=== PATIENT | female | born 1995 | race Caucasian/White ===

== ENCOUNTER → 2022-03-18 | Outpatient (CLI) | LOC: LABNPT 12:04 | PROVIDERS: ATTEND Obstetrics & Gynecology | DX: R03.0 Elevated blood-pressure reading, without diagnosis of hypertension (principal) | CPT/HCPCS: 82570; 84156 ==

== ENCOUNTER → 2022-05-10 | Outpatient (CLI) | payer BC ==
--- NOTE | 2022-05-10 18:39 | Diagnostic Imaging Report ---
INDICATION: OB ultrasound. TECHNIQUE: Multiple real-time grayscale images were obtained over the gravid uterus. COMPARISON: None. FINDINGS: There is single live intrauterine fetus. Placenta is posterior and not low. Current breech presentation. Fetus is active. The amniotic fluid index is normal. heart rate 150 BPM. Cervical length 3.7 cm. anatomical survey is normal at this time with structures visualized including kidneys, bladder, stomach, ventricles, brain, four-chamber heart, three-vessel cord, spine, and cord insertion. No maternal adnexal masses are seen. Biometrical measurements are as follows: Biparietal 4.72 cm, age 20 weeks 2 days. Head circumference 18.15 cm, age 20 weeks 4 days. Abdominal circumference 14.99 cm, age 20 weeks 2 days. Femur length 3.26 cm, age 20 weeks 2 days. Sonographic estimate age: 20 weeks 3 days. Sonographic estimated date of delivery: 09/24/22. Estimated Weight: 341 gm (+/- 50 gm). LMP percentile: 43%. heart rate: 150 beats per minute. number: 1 of 1. IMPRESSION: 1. Single live intrauterine fetus. Current biometric measurements average for 20 weeks 3 days gestation. Good correlation with LMP. LMP percentile is 43. Dictated by: Dictated on workstation # [id number]
== END ==
LOC: RAD 15:00
PROVIDERS: ATTEND Obstetrics & Gynecology
DX: Z36.9 Encounter for antenatal screening, unspecified (principal); Z3A.20 20 weeks gestation of pregnancy
CPT/HCPCS: 76805

== ENCOUNTER → 2022-09-02 | Outpatient (CLI) | payer BC | LOC: LABNPT 16:02 | PROVIDERS: ATTEND Nurse Practitioner Women's Health | DX: O13.9 Gestational [pregnancy-induced] hypertension without significant proteinuria, unspecified trimester (principal); Z3A.00 Weeks of gestation of pregnancy not specified | CPT/HCPCS: 82570; 84156 ==

== ENCOUNTER 2022-09-16 18:43 | Inpatient (IN) | payer BC ==
[~2022-09-16] VITALS: Ht 165.1 cm; Wt 82.0 kg
[2022-09-16] VITALS (11 sets, daily range): BP systolic 141–176; BP diastolic 84–100
[2022-09-16] MEDS ORDERED: D5 LR IV SOLUTION 1,000 ML IV ONE (19:54)
[2022-09-16] MEDS ORDERED: NS IV 1000 ML 1,000 ML IV SCH (20:00)
[2022-09-16 20:02] LABS: BASOPHILS % (AUTO) 0 % (0-10); EOSINOPHILS % (AUTO) 0 % (0-10); HEMATOCRIT 40 % (35-52); HEMOGLOBIN 13.5 g/dL (11.5-16.0); LYMPHOCYTES # (AUTO) 1.9 10^3/uL (1.0-4.0); LYMPHOCYTES % (AUTO) 18 % (12-44); MEAN CORPUSCULAR HEMOGLOBIN 32 pg (25-34); MEAN CORPUSCULAR HGB CONC 34 g/dL (32-36); MEAN CORPUSCULAR VOLUME 94 fL (80-99); MEAN PLATELET VOLUME 9.8 fL (9.0-12.2); MONOCYTES # (AUTO) 0.7 10^3/uL (0.0-1.0); MONOCYTES % (AUTO) 6 % (0-12); NEUTROPHILS # (AUTO) 7.9 10^3/uL (1.8-7.8); NEUTROPHILS % (AUTO) 75 % (42-75); PLATELET COUNT 199 10^3/uL (130-400); WHITE BLOOD COUNT 10.6 10^3/uL (4.3-11.0)
[2022-09-16 20:02] LABS: BILIRUBIN,URINE NEGATIVE (NEGATIVE); CLARITY,URINE CLEAR; COLOR,URINE YELLOW; GLUCOSE, URINE (UA) NEGATIVE (NEGATIVE); KETONES,URINE NEGATIVE (NEGATIVE); LEUKOCYTE ESTERASE ,URINE TRACE (NEGATIVE); NITRITE,URINE NEGATIVE (NEGATIVE); PH,URINE 5.5 (5-9); PROTEIN,URINE 2+ (NEGATIVE)
[2022-09-16] MEDS: D5 LR IV SOLUTION 1,000 ML IV SCH (20:02)
[2022-09-16] MEDS ORDERED: NS IV 1000 ML 1,000 ML ONE (20:11)
[2022-09-16 20:28] LABS: BACTERIA,URINE MODERATE /HPF; WBC,URINE 25-50 /HPF
[2022-09-16] MEDS ORDERED: LABETALOL 200 MG (NORMODYNE) TAB PO ONE (21:30)
[2022-09-16] MEDS: LABETALOL 200 MG (NORMODYNE) TAB PO SCH (21:35)
[2022-09-16] MEDS ORDERED: CATHETER FLUSH 10 ML SYR IV SCH (22:00)
[2022-09-17] VITALS (10 sets, daily range): BP systolic 117–165; BP diastolic 68–89
[2022-09-17] MEDS ORDERED: ACETAMINOPHEN 500 MG TAB (TYLENOL) ONE (01:34)
[2022-09-17] MEDS ORDERED: ACETAMINOPHEN 500 MG TAB (TYLENOL) PO ONE (01:45)
[2022-09-17] MEDS: D5 LR IV SOLUTION 1,000 ML IV SCH (04:15)
--- NOTE | 2022-09-17 05:28 | History & Physical-OB ---
OB - Chief Complaint & HPI Date/Time Date of Admission: Date of Admission: Sep 16, 2022 at 19:30 Date seen by a Provider: Sep 17, 2022 Time Seen by a Provider: 05:00 Chief Complaint/History OB-Reason for Admission/Chief: Induction of Labor Hx : 1 Hx Para: 0 Expected Date of Delivery: Sep 25, 2022 Gestational Age in Weeks: 38 Gestational Age in Days: 5 Indication for induction: medical complication Other reason for admission: Patient had elevated BP in office prompting PIH labs, which showed Protein cr ratio of 0.6. Due to PreE diagnosis and 38 weeks, patient advised to go to hospital for IOL. Admission Nurse Assessment Rev: Yes History of Labs A pos Antibody neg RI RPR NR HIV NR HBsAg NR GC neg GBS neg Allergies and Home Medications Allergies Coded Allergies: No Known Drug Allergies (Unverified , 09/16/22) Patient Home Medication List Home Medication List Reviewed: Yes OB - History Hx of Present Care: Yes Ultrasounds: Normal mid trimester US Obstetrical Complications: Gestational Hypertension Medical Complications: None Patient Past Medical History n/a Immunizations Influenza Vaccine Up-to-Date: No; Not Current OB - Admission Exam Physical Exam Vitals: Vital Signs 09/16/22 09/16/22 09/17/22 19:40 22:15 01:00 Temp 37.1 Pulse 63 Resp 18 B/P (MAP) 139/89 (106) Pulse Ox 99 O2 Delivery Room Air HEENT: NCAT Heart: Rhythm Normal Lungs: Clear Abdomen: Gravid Extremities: Normal Reflexes: Normal Cervical Dilatation: 3cm Effacement: 75% Station: -1 Membranes: Intact Heart Rate: 130's Accelerations: Accelerations Present Decelerations: No Decelerations Short Term Variability: Present Skilled Nursing Variability: Average (6-25) Contractions on Admission: 6-10 Minutes Apart Intensity: Mild Labs Laboratory Tests Test 09/16/22 19:00 09/16/22 19:55 Range/Units Urine Color YELLOW Urine Clarity CLEAR Urine pH 5.5 5-9 Urine Specific [place] >=1.030 1.016-1.022 Urine Protein 2+ H NEGATIVE Urine Glucose (UA) NEGATIVE NEGATIVE Urine Ketones NEGATIVE NEGATIVE Urine Nitrite NEGATIVE NEGATIVE Urine Bilirubin NEGATIVE NEGATIVE Urine Urobilinogen 0.2 < = 1.0 MG/DL Urine Leukocyte Esterase TRACE H NEGATIVE Urine RBC (Auto) NEGATIVE NEGATIVE Urine RBC NONE /HPF Urine WBC 25-50 H /HPF Urine Squamous Epithelial Cells 10-25 H /HPF Urine Crystals NONE /LPF Urine Bacteria MODERATE H /HPF Urine Casts NONE /LPF Urine Mucus LARGE H /LPF Urine Culture Indicated YES White Blood Count 10.6 4.3-11.0 10^3/uL Red Blood Count 4.26 3.80-5.11 10^6/uL Hemoglobin 13.5 11.5-16.0 g/dL Hematocrit 40 35-52 % Mean Corpuscular Volume 94 80-99 fL Mean Corpuscular Hemoglobin 32 25-34 pg Mean Corpuscular Hemoglobin Concent 34 32-36 g/dL Red Cell Distribution Width 12.4 10.0-14.5 % Platelet Count 199 130-400 10^3/uL Mean Platelet Volume 9.8 9.0-12.2 fL Immature Granulocyte % (Auto) 0 % Neutrophils (%) (Auto) 75 42-75 % Lymphocytes (%) (Auto) 18 12-44 % Monocytes (%) (Auto) 6 0-12 % Eosinophils (%) (Auto) 0 0-10 % Basophils (%) (Auto) 0 0-10 % Neutrophils # (Auto) 7.9 H 1.8-7.8 10^3/uL Lymphocytes # (Auto) 1.9 1.0-4.0 10^3/uL Monocytes # (Auto) 0.7 0.0-1.0 10^3/uL Eosinophils # (Auto) 0.0 0.0-0.3 10^3/uL Basophils # (Auto) 0.0 0.0-0.1 10^3/uL Immature Granulocyte # (Auto) 0.0 0.0-0.1 10^3/uL OB - Assessment/Plan/Diagnosis Assessment Assessment: induction of labor (PreEclampsia) Admission Dx 27 yo @ 38.6 weeks Preeclampsia GBS neg Admission Status: Inpatient Order (span 2 midnights) Reason for Inpatient Admission: IOL at 38 weeks Plan Plan: Induction Induction Method: per Misoprostol Protocol KALEY ELI DO Sep 17, 2022 05:28
[2022-09-17] MEDS ORDERED: fentaNYL 2 mcg/ml BUPIVA 0.125 100 ML ONE (08:00)
[2022-09-17] MEDS ORDERED: fentaNYL INJ 100 MCG/2 ML AMP ONE (08:34)
[2022-09-17] MEDS ORDERED: LIDOCAINE PF 2% 5 ML (XYLOCAINE) VIAL ONE (08:34)
[2022-09-17] MEDS: LABETALOL 200 MG (NORMODYNE) TAB PO SCH ×2 (08:45→21:19)
[2022-09-17] MEDS ORDERED: LACTATED RINGERS 1,000 ML IV SCH (09:00)
[2022-09-17] MEDS ORDERED: diphenhydrAMINE 50 MG/ML INJ (BENADRYL) IV PRN (09:00)
[2022-09-17] MEDS ORDERED: NALOXONE 0.4 MG/ML 1 ML (NARCAN) VIAL IV PRN ×2 (09:00)
[2022-09-17] MEDS ORDERED: ONDANSETRON 4 MG/2 ML (SDV) Z0FRAN IV PRN (09:00)
[2022-09-17] MEDS ORDERED: METOCLOPRAMIDE INJ 10 MG/2 ML (REGLAN) IV PRN (09:00)
[2022-09-17] MEDS ORDERED: fentaNYL 2 mcg/ml BUPIVA 0.125 100 ML EPI SCH (09:00)
[2022-09-17] MEDS ORDERED: OXYTOCIN PRE-MIX DRIP 500 ML IV ONE ×2 (10:20→12:25)
[2022-09-17] MEDS ORDERED: LIDOCAINE 1% INJ 10 ML VIAL ONE (10:22)
[2022-09-17] MEDS: OXYTOCIN PRE-MIX DRIP 500 ML IV SCH ×2 (12:23→20:28)
[2022-09-17] MEDS ORDERED: ACETAMINOPHEN 500 MG TAB (TYLENOL) PO PRN (12:45)
[2022-09-17] MEDS ORDERED: BENZOCAINE/MENTHOL (DERMOPLAST) 56 ML CAN TP PRN (12:45)
[2022-09-17] MEDS ORDERED: WITCH HAZEL(TUCKS) 40 EA JAR TOP PRN (12:45)
[2022-09-17] MEDS ORDERED: DIBUCAINE 1% OINTMENT 30 GM TUBE TOP PRN (12:45)
[2022-09-17] MEDS ORDERED: MEASLES,MUMPS,RUBELLA 1 EA INJ SQ ONE (12:45)
[2022-09-17] MEDS ORDERED: HYDROcodone/APAP 5 MG/325 MG (LORTAB) TAB PO PRN (12:45)
[2022-09-17] MEDS ORDERED: TETANUS,DIPTH,PERTUSS P/F (BOOSTRIX) 0.5 ML VIAL IM ONE (12:45)
[2022-09-17] MEDS: IBUPROFEN 600 MG (MOTRIN) TAB PO SCH ×2 (13:59→21:17)
[2022-09-17] MEDS ORDERED: CATHETER FLUSH 10 ML SYR IV SCH (14:00)
--- NOTE | 2022-09-17 15:45 | OB Labor & Delivery Record ---
L&D History Date of Service Date of Service: Sep 17, 2022 History Expected Date of Delivery: Sep 25, 2022 Gestational Age in Weeks: 38 Hx : 1 Hx Para: 0 Complications Events: Induced HTN Operative Indications (Cesarea: N/A-Vaginal Delivery Intrapartal Events: None L&D Stage1 Stage One Onset of Labor - Date: Sep 17, 2022 Monitors and Tracing Monitor Mode: External Heart Rate: 135 Monitor Decelerations: Early Station: -1 Polishing Machine Tender Variability: Average (6-10) Short Term Variability: Present Presentation: Vertex Vital Signs VS - Last 72 Hours, by Label 09/16/22 09/16/22 09/16/22 09/16/22 19:00 19:00 19:10 19:22 Temp 36.7 37.6 Pulse 70 70 71 71 Resp 18 18 18 18 B/P (MAP) 155/98 (117) 153/97 (115) 176/100 (125) Pulse Ox 98 98 98 99 O2 Delivery Room Air Room Air Room Air Room Air 09/16/22 09/16/22 09/16/22 09/16/22 19:40 20:00 20:30 21:00 Temp 37.5 Pulse 67 61 56 74 Resp 18 18 18 18 B/P (MAP) 173/94 (120) 143/90 (107) 155/90 (111) 155/97 (116) Pulse Ox 99 O2 Delivery Room Air Room Air 09/16/22 09/16/22 09/16/22 09/16/22 21:15 22:00 22:15 23:00 Pulse 66 50 51 55 Resp 18 18 18 18 B/P (MAP) 160/95 (116) 151/92 (111) 141/84 (103) 144/85 (104) O2 Delivery Room Air Room Air 09/17/22 09/17/22 09/17/22 09/17/22 00:00 01:00 02:00 03:00 Temp 37.1 Pulse 54 63 Resp 18 18 B/P (MAP) 136/78 (97) 139/89 (106) 09/17/22 09/17/22 09/17/22 09/17/22 04:00 05:00 06:00 07:00 Temp 36.6 Pulse 77 Resp 18 B/P (MAP) 117/69 (85) 09/17/22 07:15 Temp 36.9 Pulse 65 Resp 18 B/P (MAP) 125/85 (98) Pulse Ox 98 O2 Delivery Room Air Rupture of Membranes Spontaneous Ruture of Membrane: No Amniotic Membrane Rupture Time: 721 Amniotic Membrane Fluid Desc.: Clear Vaginal Bleeding Description: Normal Show Induction/Anesthesia Epidural Cath Placement - Time: 828 Progress/Notes Patient admitted last night for IOL due to preeclampsia dx done from the office. She had misoprostol given PO overnight. Followed by [facility] this AM. SHe received an epidural and progressed to complete and +1 station. L&D Stage2 Stage Two Stage II Date: Sep 17, 2022 Monitors and Tracing Monitor Mode: External Heart Rate: 135 Monitor Accelerations: Uniform Monitor Decelerations: Variable Polishing Machine Tender Variability: Average (6-10) Short Term Variability: Present Position: Right Occiput Anterior Presentation: Vertex Cord Descript/Complications Cord Vessel Description: 3 Vessels Delivery Type Delivery Method: Spontaneous Vaginal Anterior Shoulder: Right Episiotomy/Perineal Laceration Laceraction(s)/Extensions: Yes Episiotomy Description: Perineal Extension/lac, 2nd degree Degree (describe repair) laceration repaired using 3-0 rapide and 2-0 vicryl suture in usual fashion Condition of Infant Delivery 1 minute Comment: 8 5 minute Comment: 9 Notes Live female infant weight pending Condition of Infant Condition of : Living Exam: No Observed Abnormalities Resuscitation Resuscitation: N/A - Spontaneous Resp L&D Stage3 Stage Three Stage III Date: Sep 17, 2022 Pictocin Pitocin Administration Comment: 30 mu wide open after delivery of the placenta Placenta Delivery Placenta Delivery: Spontaneous Delivery Summary Summary Estimated blood loss (mL): 300 Attending at delivery: Kaley Eli DO Condition of Delivery Examined: Cervix Examined, Uterus Explored Post Hemorrhage: No Condition of Mother stable Condition of (s) stable KALEY ELI DO Sep 17, 2022 15:45
[2022-09-17] MEDS: DOCUSATE SODIUM 100 MG (COLACE) CAP PO SCH (21:17)
[2022-09-18 01:08] VITALS: BP 139/87
[2022-09-18 04:26] VITALS: BP 137/80
[2022-09-18] MEDS: IBUPROFEN 600 MG (MOTRIN) TAB PO SCH ×2 (04:26→10:32)
[2022-09-18 06:12] LABS: BASOPHILS # (AUTO) 0.1 10^3/uL (0.0-0.1); BASOPHILS % (AUTO) 1 % (0-10); EOSINOPHILS # (AUTO) 0.2 10^3/uL (0.0-0.3); EOSINOPHILS % (AUTO) 2 % (0-10); HEMATOCRIT 31 % (35-52); HEMOGLOBIN 10.6 g/dL (11.5-16.0); LYMPHOCYTES # (AUTO) 2.2 10^3/uL (1.0-4.0); LYMPHOCYTES % (AUTO) 20 % (12-44); MEAN CORPUSCULAR HEMOGLOBIN 32 pg (25-34); MEAN CORPUSCULAR HGB CONC 34 g/dL (32-36); MEAN CORPUSCULAR VOLUME 95 fL (80-99); MEAN PLATELET VOLUME 9.6 fL (9.0-12.2); MONOCYTES % (AUTO) 9 % (0-12); NEUTROPHILS # (AUTO) 7.4 10^3/uL (1.8-7.8); NEUTROPHILS % (AUTO) 68 % (42-75); PLATELET COUNT 167 10^3/uL (130-400); WHITE BLOOD COUNT 10.8 10^3/uL (4.3-11.0)
[2022-09-18] MEDS ORDERED: PRENATAL VITAMIN 1 EA TAB PO SCH (07:00)
--- NOTE | 2022-09-18 09:56 | Discharge Inst-Women's Service ---
Discharge Inst-Women's Serv Depart Medication/Instructions New, Converted or Re-Newed RX: Transmitted to Pharmacy Final Diagnosis PPD 1 NVD Problems Reviewed?: Yes Consults/Follow Up Additional Follow Up: Yes Orders/Referrals Dr. Eli in 7-10 days for BP check, and in 6 weeks Activity Activity: Activity as Tolerated Driving Instructions: No Driving for 1 Week NO SMOKING: NO SMOKING Nothing Inside Vagina: No Douching, No [place], No Tampons Diet Discharge Diet: No Restrictions Symptoms to Report to : Bleeding Excessive, Pain Increased, Fever Over 101 Degrees F, Vaginal Bleeding Increase, Questions/Concerns For Any Problems or Questions: Contact Your Physician KALEY ELI DO Sep 18, 2022 9:56 am
[2022-09-18] MEDS ORDERED: DIBU30OI TOP ×2 (09:59)
[2022-09-18] MEDS ORDERED: IBUP-844 PO ×2 (09:59)
[2022-09-18] MEDS ORDERED: BENZ78AE5 TP ×2 (09:59)
[2022-09-18] MEDS ORDERED: ACHD5005 PO ×2 (09:59)
[2022-09-18] MEDS ORDERED: DOCU100C37 PO ×2 (09:59)
[2022-09-18] MEDS ORDERED: LABE200T10 PO ×2 (09:59)
--- NOTE | 2022-09-18 10:00 | Postpartum Progress Note ---
Note Note Day # 1 Subjective: Patient is without complaints. Ambulating, voiding. Tolerating a regular diet without nausea or vomiting. Normal lochia. Pain is well controlled with oral pain medications. Objective: Physical Exam: General - Alert and oriented, no apparent distress Abdomen - Soft, appropriately tender to palpation, non-distended, fundus firm at umbilicus Extremities - no edema, negative Daniel's bilaterally Assessment: PPD 1 NVD Preeclampsia now PP, BP has been stable on Labetalol Plan: Routine care. Continue labetalol after discharge with 1 week follow up on BP Encourage breast feeding. Encourage ambulation. Ferrous sulfate supplementation. Plan for discharge today pending infant release Vitals - Labs Vital Signs - I&O Vital Signs Date Time Temp Pulse Resp B/P (MAP) Pulse Ox O2 Delivery O2 Flow Rate FiO2 09/18/22 04:26 36.6 71 18 137/80 (99) 97 Room Air 09/18/22 01:08 36.0 69 18 139/87 (104) 97 Room Air 09/17/22 21:17 36.8 71 18 122/68 (86) 98 Room Air 09/17/22 12:15 37.4 84 16 120/76 (91) Room Air I & O 09/18/22 07:00 Intake Total 2100 ml Balance 2100 ml Labs Laboratory Tests 09/18/22 05:49: White Blood Count 10.8, Red Blood Count 3.28L, Hemoglobin 10.6#L, Hematocrit 31L , Mean Corpuscular Volume 95, Mean Corpuscular Hemoglobin 32, Mean Corpuscular Hemoglobin Concent 34, Red Cell Distribution Width 12.6, Platelet Count 167, Mean Platelet Volume 9.6, Immature Granulocyte % (Auto) 1, Neutrophils (%) (Auto) 68, Lymphocytes (%) (Auto) 20, Monocytes (%) (Auto) 9, Eosinophils (%) (Auto) 2, Basophils (%) (Auto) 1, Neutrophils # (Auto) 7.4, Lymphocytes # (Auto) 2.2, Monocytes # (Auto) 1.0, Eosinophils # (Auto) 0.2, Basophils # (Auto) 0.1, Immature Granulocyte # (Auto) 0.1 KALEY ELI DO Sep 18, 2022 10:00 am
[2022-09-18 10:30] VITALS: BP 131/80
[2022-09-18] MEDS: DOCUSATE SODIUM 100 MG (COLACE) CAP PO SCH (10:32)
[2022-09-18] MEDS: LABETALOL 200 MG (NORMODYNE) TAB PO SCH (10:33)
--- NOTE | 2022-09-18 12:29 | Anesthesia-Regional Post-Op ---
Regional Patient Condition Mental Status: Alert, Oriented x3 Circulation: Same as Pre-Op Headache: Absent Sensation: Full Recovery Motor Block: Absent Post Op Complications Complications None Follow Up Care/Instructions Patient Instructions None needed. Anesthesia/Patient Condition Patient is doing well, no complaints, stable vital signs, no apparent adverse anesthesia problems. No complications reported per nursing. [place] [facility] [place] BINTA DENNISON CRNA Sep 18, 2022 12:29
== END 2022-09-18 14:40 | disposition home or self-care (01) | DRG 807 ==
LOC: WSo 18:43 → LDRP 18:44 → WSo 19:29 → LDRP 19:30
PROVIDERS: ADMIT Obstetrics & Gynecology; ATTEND Obstetrics & Gynecology
PROC: 10E0XZZ Delivery of Products of Conception, External Approach (ICD-10-PCS; principal; 2022-09-17)
PROC: 0KQM0ZZ Repair Perineum Muscle, Open Approach (ICD-10-PCS; 2022-09-17)
PROC: 3E0DXGC Introduction of Other Therapeutic Substance into Mouth and Pharynx, External Approach (ICD-10-PCS; 2022-09-17)
DX: O14.94 Unspecified pre-eclampsia, complicating childbirth (principal); Z37.0 Single live birth; O70.1 Second degree perineal laceration during delivery; Z3A.38 38 weeks gestation of pregnancy
CPT/HCPCS: 36415; 81000; 85025; 86780; 86850; 86900; 86901; 87088

== ENCOUNTER → 2022-09-16 | Outpatient (CLI) | payer BC ==
[~2022-09-16] MED LIST: ACHD5005 PO; BENZ78AE5 TP; DIBU30OI TOP; DOCU100C37 PO; IBUP-844 PO; LABE200T10 PO
== END ==
LOC: LABNPT 16:44
PROVIDERS: ATTEND Obstetrics & Gynecology
DX: O13.9 Gestational [pregnancy-induced] hypertension without significant proteinuria, unspecified trimester (principal); Z3A.00 Weeks of gestation of pregnancy not specified
CPT/HCPCS: 82570; 84156